=== PATIENT | male | born 1995 | race Caucasian/White ===

== ENCOUNTER 2021-10-23 03:52 | Emergency (ER) | payer BC ==
[2021-10-23] MEDS ORDERED: Ondansetron PF 4 MG/2 ML Vial ONE ×4 (04:18→05:00)
[2021-10-23 04:25] LABS: #Basophils 0.1 thou/uL (0.0-0.2); #Eosinphils 0.2 thou/uL (0.0-0.7); #Lymphocytes 2.6 thou/uL (1.20-3.40); #Monocytes 0.3 thou/uL (0.11-0.59); #Neutrophils 3.3 thou/uL (1.40-6.50); %Basophils 1.1 % (0.0-1.0); %Eosinophils 3.6 % (0.0-10.0); %Lymphocytes 39.8 % (21.0-51.0); %Monocytes 4.5 % (0.0-10.0); Hemoglobin 16.7 g/dL (14.0-18.0); Mean Corpuscular HGB CONC 33.1 g/dL (32.0-36.0); Mean Corpuscular Hemoglobin 29.2 pg (27.0-31.0); Mean Corpuscular Volume 88.1 fL (78.0-98.0); Mean Platelet Volume 8.1 fL (7.4-10.4); Platelet Count 221 thou/uL (130-400); RBC Distribution Width 11.7 % (11.5-14.5); Red Blood Cell (RBC) Count 5.71 mill/uL (4.70-6.10); White Blood Cell (WBC) Count 6.5 thou/uL (4.8-10.8)
[2021-10-23 04:45] LABS: ALT (SGPT) 14 U/L (8-55); AST (SGOT) 20 U/L (5-34); Albumin 4.9 g/dL (3.5-5.0); Alkaline Phosphatase 60 U/L (40-110); Anion Gap 17 mmol/L (10-20); BUN (Urea Nitrogen) 12 mg/dL (8.9-20.6); Bilirubin, Total 0.9 mg/dL (0.2-1.2); Calc. Creatinine Clearance 0 mL/min (70-130); Carbon Dioxide 28 mmol/L (22-29); Chloride 102 mmol/L (98-107); Glucose 100 mg/dL (70-105); Potassium 3.8 mmol/L (3.5-5.1); Protein, Total 7.9 g/dL (6.0-8.3); Sodium 143 mmol/L (136-145)
[2021-10-23] MEDS ORDERED: Sodium Chloride 0.9% 500 ML BAG ONE (06:29)
== END 2021-10-23 05:42 | disposition short-term general hospital (02) ==
LOC: MADERS 03:52
DX: T18.128A Food in esophagus causing other injury, initial encounter (principal)
CPT/HCPCS: 71045; 80053; 85025; 96361; 96374; 96375; 96376; J1610; J2405; J7030; J7620